=== PATIENT | female | born 1990 | race Caucasian/White ===

== ENCOUNTER 2019-07-23 06:44 | Inpatient (IN) | payer BC ==
[~2019-07-23 06:44] MED LIST: Bupivacaine 0.25% 10 ML SDV ONE
[2019-07-23] MEDS ORDERED: Ondansetron 4 MG/2 ML SDV IVPUSH PRN (07:29)
[2019-07-23] MEDS ORDERED: Sodium Chloride 0.9% 10 ML Syringe FLUSH PRN (07:29)
[2019-07-23] MEDS ORDERED: Oxytocin/Lactated Ringers 10 UNIT/1,000 ML BAG IV SCH ×2 (07:30→17:45)
[2019-07-23] MEDS ORDERED: Nalbuphine 10 MG/ML Syringe IVPUSH PRN (07:31)
[2019-07-23] MEDS ORDERED: fentaNYL 100 MCG/2 ML SDV EPIDUR PRN (08:11)
[2019-07-23] MEDS ORDERED: ePHEDrine 50 MG/ML SDV IVPUSH PRN (08:11)
--- NOTE | 2019-07-23 08:13 | PCM.PREANE ---
Preanesthetic Assessment - Anesthesia/Transfusion/Family Hx Anesthesia History: Prior Anesthesia Without Reaction Family History of Anesthesia Reaction: No Transfusion History: No Prior Transfusion(s) Intubation History: Unknown - Review of Systems General: No Symptoms Pulmonary: No Symptoms Cardiovascular: No Symptoms Gastrointestinal: No Symptoms, Diarrhea, Nausea Neurological: No Symptoms, Headache (migraine last one 3 months ago.), Numbness (right sciatica since ) Other: Reports: None, Diabetes (gestational DM) - Physical Assessment NPO Status Date: 07/23/19 NPO Status Time: 09:30 Vital Signs: Last Vital Signs Temp 36.9 C 07/23/19 07:14 Pulse 62 07/23/19 07:14 Resp 14 07/23/19 07:14 BP 107/59 L 07/23/19 07:14 Pulse Ox 100 07/23/19 07:14 Height: 1.6 m Weight: 59.92 kg ASA Class: 2 Mental Status: Alert & Oriented x3 Airway Class: Mallampati = 2 Dentition: Reports: Normal Dentition, Caries Thyro-Mental Finger Breadths: 3 Mouth Opening Finger Breadths: 3 ROM/Head Extension: Full Lungs: Clear to Auscultation, Normal Respiratory Effort Cardiovascular: Regular Rate, Regular Rhythm, No Murmurs - Lab Values: Laboratory Last Values WBC 11.29 K/mm3 (3.98-10.04) H 07/23/19 07:54 RBC 3.74 M/mm3 (3.98-5.22) L 07/23/19 07:54 Hgb 11.2 gm/dl (11.2-15.7) 07/23/19 07:54 Hct 34.0 % (34.1-44.9) L 07/23/19 07:54 MCV 90.9 fl (79.4-94.8) 07/23/19 07:54 MCH 29.9 pg (25.6-32.2) 07/23/19 07:54 MCHC 32.9 g/dl (32.2-35.5) 07/23/19 07:54 RDW Std Deviation 42.8 fL (36.4-46.3) 07/23/19 07:54 Plt Count 204 K/mm3 (182-369) 07/23/19 07:54 MPV 10.3 fl (9.4-12.3) 07/23/19 07:54 Neut % (Auto) 78.8 % (34.0-71.1) H 07/23/19 07:54 Lymph % (Auto) 16.2 % (19.3-51.7) L 07/23/19 07:54 Becker % (Auto) 4.3 % (4.7-12.5) L 07/23/19 07:54 Eos % (Auto) 0.2 (0.7-5.8) L 07/23/19 07:54 Baso % (Auto) 0.1 % (0.1-1.2) 07/23/19 07:54 Neut # (Auto) 8.90 K/mm3 (1.56-6.13) H 07/23/19 07:54 Lymph # (Auto) 1.83 K/mm3 (1.18-3.74) 07/23/19 07:54 Becker # (Auto) 0.49 K/mm3 (0.24-0.36) H 07/23/19 07:54 Eos # (Auto) 0.02 K/mm3 (0.04-0.36) L 07/23/19 07:54 Baso # (Auto) 0.01 K/mm3 (0.01-0.08) 07/23/19 07:54 Above labs reviewed and noted and within acceptable ranges to proceed with epidural if desired. - Allergies Allergies/Adverse Reactions: Allergies Allergy/AdvReac Type Severity Reaction Status Date / Time No Known Allergies Allergy Verified 07/23/19 07:13 - Anesthesia Plan Pre-Op Medication Ordered: None - Acknowledgements Anesthesia Type Planned: Epidural Pt an Appropriate Candidate for the Planned Anesthesia: Yes Alternatives and Risks of Anesthesia Discussed w Pt/Guardian: Yes Pt/Guardian Understands and Agrees with Anesthesia Plan: Yes PreAnesthesia Questionnaire - HOME MEDS Home Medications: Home Meds Vits #93/Iron Fum/FA [ Formula Tablet] 07/23/19 [History] - CURRENT (IN HOUSE) MEDS Current Meds: Current Medications Lactated Ringer's (Ringers, Lactated) 1,000 mls @ 100 mls/hr IV ASDIRECTED COLTEN Oxytocin/Lactated Ringer's (Pitocin In Lr 10 Units/1,000 Ml) 10 unit in 1,000 mls @ 500 mls/hr IV .CONTINUOUS COLTEN Nalbuphine HCl (Nubain) 10 mg IVPUSH Q3H PRN PRN Reason: Pain Ondansetron HCl (Zofran) 4 mg IVPUSH Q4H PRN PRN Reason: Nausea/Vomiting Sodium Chloride (Saline Flush) 10 ml FLUSH ASDIRECTED PRN PRN Reason: Keep Vein Open
[2019-07-23] MEDS ORDERED: Phenylephrine 1 MG in Sodium Chloride 0.9% 10 ML IV SCH (08:15)
[2019-07-23] MEDS: Lactated Ringers 1,000 ML IV SCH ×3 (09:15→14:32)
[2019-07-23] MEDS: Bupivacaine/fentaNYL/NS 100 ML Bag EPIDUR SCH ×2 (09:49→17:49)
--- NOTE | 2019-07-23 22:02 | PCM.HP.2 ---
H&P History of Present Illness - General Date of Service: 07/23/19 Admit Problem/Dx: Admission Diagnosis/Problem Admission Diagnosis/Problem - History of Present Illness Improves with: Reports: None Worsens with: Reports: None Associated Symptoms: Reports: No Other Symptoms Labor Pains Pain Score (Numeric/FACES): 8 - Related Data Allergies/Adverse Reactions: Allergies Allergy/AdvReac Type Severity Reaction Status Date / Time No Known Allergies Allergy Verified 07/23/19 07:13 Home Medications: Home Meds Vits #93/Iron Fum/FA [ Formula Tablet] 07/23/19 [History] Past Medical History HEENT History: Reports: Impaired Vision, Other (See Below) Other HEENT History: wears glasses [employer] History: Reports: Neurological History: Reports: Migraines Endocrine/Metabolic History: Reports: Diabetes, Gestational - Infectious Disease History Infectious Disease History: Reports: Chicken Pox - Past Surgical History HEENT Surgical History: Reports: Oral Surgery, Tonsillectomy Social & Family History - Tobacco Use Smoking Status *Q: Former Smoker Used Tobacco, but Quit: Yes Month/Year Tobacco Last Used: 2009 - Caffeine Use Caffeine Use: Reports: None - Recreational Drug Use Recreational Drug Use: No H&P Review of Systems - Review of Systems: Review Of Systems: See Below General: Reports: No Symptoms HEENT: Reports: No Symptoms Pulmonary: Reports: No Symptoms Cardiovascular: Reports: No Symptoms Gastrointestinal: Reports: No Symptoms Genitourinary: Reports: No Symptoms Musculoskeletal: Reports: No Symptoms Skin: Reports: No Symptoms Psychiatric: Reports: No Symptoms Neurological: Reports: No Symptoms Hematologic/Lymphatic: Reports: No Symptoms Immunologic: Reports: No Symptoms Exam - Exam Exam: See Below - Vital Signs Vital Signs: Last Vital Signs Temp 36.9 C 07/23/19 07:14 Pulse 62 07/23/19 07:14 Resp 14 07/23/19 07:14 BP 107/59 L 07/23/19 07:14 Pulse Ox 100 07/23/19 07:14 Weight: 59.92 kg - Exam General: Alert, Oriented, 4 HEENT: PERRLA, Hearing Intact, Mucosa Moist & [place], Nares Patent, Normal Nasal Septum, Posterior Pharynx Clear, Conjunctiva Clear, EOMI, EACs Clear, TMs Clear Neck: Supple, Trachea Midline, 2 Lungs: Clear to Auscultation, Normal Respiratory Effort Cardiovascular: Regular Rate, Regular Rhythm GI/Abdominal Exam: Normal Bowel Sounds, Soft, Non-Tender, No Organomegaly, No Distention, No Abnormal Bruit, No Mass, Pelvis Stable Back Exam: Normal Inspection, Full Range of Motion, NT Extremities: Normal Inspection, Normal Range of Motion, Non-Tender, No Pedal Edema, Normal Capillary Refill Skin: Warm, Dry, Intact Neurological: Cranial Nerves Intact, Reflexes Equal Bilateral Neuro Extensive - Mental Status: Alert, Oriented x3, Normal Mood/Affect, Normal Cognition Neuro Extensive - Motor, Sensory, Reflexes: CN II-XII Intact, Normal Gait, Normal Reflexes Psychiatric: Alert, Normal Affect, Normal Mood - Patient Data Lab Results Last 24 hrs: Laboratory Results - last 24 hr 07/23/19 07/23/19 07/23/19 Range/Units 07:54 07:54 10:27 WBC 11.29 H (3.98-10.04) K/mm3 RBC 3.74 L (3.98-5.22) M/mm3 Hgb 11.2 (11.2-15.7) gm/dl Hct 34.0 L (34.1-44.9) % MCV 90.9 (79.4-94.8) fl MCH 29.9 (25.6-32.2) pg MCHC 32.9 (32.2-35.5) g/dl RDW Std Deviation 42.8 (36.4-46.3) fL Plt Count 204 (182-369) K/mm3 MPV 10.3 (9.4-12.3) fl Neut % (Auto) 78.8 H (34.0-71.1) % Lymph % (Auto) 16.2 L (19.3-51.7) % Craig % (Auto) 4.3 L (4.7-12.5) % Eos % (Auto) 0.2 L (0.7-5.8) Baso % (Auto) 0.1 (0.1-1.2) % Neut # (Auto) 8.90 H (1.56-6.13) K/mm3 Lymph # (Auto) 1.83 (1.18-3.74) K/mm3 Craig # (Auto) 0.49 H (0.24-0.36) K/mm3 Eos # (Auto) 0.02 L (0.04-0.36) K/mm3 Baso # (Auto) 0.01 (0.01-0.08) K/mm3 POC Glucose 76 (70-105) mg/dL RPR Non-reactive (NONREACTIVE) 07/23/19 07/23/19 07/23/19 Range/Units 12:34 14:28 16:37 WBC (3.98-10.04) K/mm3 RBC (3.98-5.22) M/mm3 Hgb (11.2-15.7) gm/dl Hct (34.1-44.9) % MCV (79.4-94.8) fl MCH (25.6-32.2) pg MCHC (32.2-35.5) g/dl RDW Std Deviation (36.4-46.3) fL Plt Count (182-369) K/mm3 MPV (9.4-12.3) fl Neut % (Auto) (34.0-71.1) % Lymph % (Auto) (19.3-51.7) % Craig % (Auto) (4.7-12.5) % Eos % (Auto) (0.7-5.8) Baso % (Auto) (0.1-1.2) % Neut # (Auto) (1.56-6.13) K/mm3 Lymph # (Auto) (1.18-3.74) K/mm3 Craig # (Auto) (0.24-0.36) K/mm3 Eos # (Auto) (0.04-0.36) K/mm3 Baso # (Auto) (0.01-0.08) K/mm3 POC Glucose 72 104 77 (70-105) mg/dL RPR (NONREACTIVE) 07/23/19 07/23/19 Range/Units 18:30 19:48 WBC (3.98-10.04) K/mm3 RBC (3.98-5.22) M/mm3 Hgb (11.2-15.7) gm/dl Hct (34.1-44.9) % MCV (79.4-94.8) fl MCH (25.6-32.2) pg MCHC (32.2-35.5) g/dl RDW Std Deviation (36.4-46.3) fL Plt Count (182-369) K/mm3 MPV (9.4-12.3) fl Neut % (Auto) (34.0-71.1) % Lymph % (Auto) (19.3-51.7) % Craig % (Auto) (4.7-12.5) % Eos % (Auto) (0.7-5.8) Baso % (Auto) (0.1-1.2) % Neut # (Auto) (1.56-6.13) K/mm3 Lymph # (Auto) (1.18-3.74) K/mm3 Craig # (Auto) (0.24-0.36) K/mm3 Eos # (Auto) (0.04-0.36) K/mm3 Baso # (Auto) (0.01-0.08) K/mm3 POC Glucose 88 74 (70-105) mg/dL RPR (NONREACTIVE) Result Diagrams: 07/23/19 07:54 Sepsis Event Note - Evaluation Sepsis Screening Result: No Definite Risk Problem List Initiated/Reviewed/Updated: Yes Orders Last 24hrs: Active Orders 24 hr Category Date Time Status Patient Status Manage Transfer [TRANSFER] Routine ADT 07/23/19 21:55 Ordered Patient Status [ADT] Routine ADT 07/23/19 07:29 Active Activity as Tolerated [RC] PFP Care 07/23/19 07:29 Active Blood Glucose Check, Bedside [RC] Q2HR Care 07/23/19 10:30 Active Communication Order [RC] ASDIRECTED Care 07/23/19 07:29 Active Heart Tones [RC] ASDIRECTED Care 07/23/19 07:30 Active Non Stress Test [RC] PER UNIT ROUTINE Care 07/23/19 07:14 Active Notify Provider [RC] ASDIRECTED Care 07/23/19 08:11 Active Notify Provider [RC] PFP Care 07/23/19 07:29 Active Notify Provider [RC] PRN Care 07/23/19 07:29 Active Oxygen Therapy [RC] ASDIRECTED Care 07/23/19 08:11 Active PCEA Epidural [RC] ASDIRECTED Care 07/23/19 08:11 Active Peripheral IV Care [RC] . DIRECTED Care 07/23/19 07:30 Active Pulse Oximetry [RC] ASDIRECTED Care 07/23/19 08:11 Active Urinary Catheter Assessment [RC] ASDIRECTED Care 07/23/19 08:12 Active Urinary Catheter Insertion [Insert Urinary Catheter] [ Care 07/23/19 08:15 Ordered OM.PC] Q24H Vital Signs [RC] PER UNIT ROUTINE Care 07/23/19 07:14 Active Regular Diet [DIET] Diet 07/23/19 Breakfast Active BLOOD BANK HOLD SPECIMEN [BBK] Routine Lab 07/23/19 07:29 Ordered Bupivacaine/fentaNYL/NS [fentaNYL/Bupivacaine/NS 2 MCG- Med 07/23/19 08:15 Active 0.125% 100 ML] 100 ml EPIDUR ASDIRECTED Lactated Ringers [Ringers, Lactated] 1,000 ml Med 07/23/19 07:30 Active IV ASDIRECTED Nalbuphine [Nubain] Med 07/23/19 07:31 Active 10 mg IVPUSH Q3H PRN Ondansetron [Zofran] Med 07/23/19 07:29 Active 4 mg IVPUSH Q4H PRN Oxytocin/Lactated Ringers [Pitocin in LR 10 Units/1,000 Med 07/23/19 07:30 Active ML] 10 unit in 1,000 ml IV .CONTINUOUS Oxytocin/Lactated Ringers [Pitocin in LR 10 Units/1,000 Med 07/23/19 17:45 Active ML] 10 unit in 1,000 ml IV TITRATE Phenylephrine [Jim-Synephrine] 1 mg Med 07/23/19 08:15 Active Sodium Chloride 0.9% [Normal Saline] 10 ml IV TITRATE Sodium Chloride 0.9% [Saline Flush] Med 07/23/19 07:29 Active 10 ml FLUSH ASDIRECTED PRN ePHEDrine [ePHEDrine sulfate] Med 07/23/19 08:11 Active 5 mg IVPUSH ASDIRECTED PRN fentaNYL [Sublimaze] Med 07/23/19 08:11 Active 100 mcg EPIDUR Q3H PRN Electronic Heart Tones Ext w TOCO [WOMSER] Oth 07/23/19 07:29 Ordered Routine Electronic Heart Tones Internal [WOMSER] Per Unit Oth 07/23/19 07:29 Ordered Routine Peripheral IV Insertion Adult [OM.PC] Routine Oth 07/23/19 07:29 Ordered Resuscitation Status Routine Resus Stat 07/23/19 07:14 Ordered Medication Orders Ephedrine Sulfate (Ephedrine Sulfate) 5 mg IVPUSH ASDIRECTED PRN PRN Reason: Hypotension Fentanyl (Sublimaze) 100 mcg EPIDUR Q3H PRN PRN Reason: Pain Last Admin: 07/23/19 09:48 Dose: 100 mcg Fentanyl/Bupivacaine HCl (Fentanyl/Bupivacaine/Ns 2 Mcg-0.125% 100 Ml) 100 ml EPIDUR ASDIRECTED COLTEN Last Admin: 07/23/19 17:49 Dose: 100 ml Admin: 07/23/19 09:49 Dose: 100 ml Lactated Ringer's (Ringers, Lactated) 1,000 mls @ 100 mls/hr IV ASDIRECTED COLTEN Last Admin: 07/23/19 14:32 Dose: 100 mls/hr Infusion: 07/23/19 14:32 Dose: 100 mls/hr Infusion: 07/23/19 10:30 Dose: 100 mls/hr Admin: 07/23/19 10:11 Dose: 999 mls/hr Infusion: 07/23/19 10:11 Dose: 999 mls/hr Admin: 07/23/19 09:15 Dose: 999 mls/hr Oxytocin/Lactated Ringer's (Pitocin In Lr 10 Units/1,000 Ml) 10 unit in 1,000 mls @ 500 mls/hr IV .CONTINUOUS COLTEN Phenylephrine HCl 1 mg/ Sodium (Chloride) 10.1 mls @ 1 mls/sec IV TITRATE COLTEN; Protocol Oxytocin/Lactated Ringer's (Pitocin In Lr 10 Units/1,000 Ml) 10 unit in 1,000 mls @ 12 mls/hr IV TITRATE COLTEN; Protocol Last Titration: 07/23/19 19:30 Dose: 4 munits/min, 24 mls/hr Titration: 07/23/19 18:31 Dose: 3 munits/min, 18 mls/hr Admin: 07/23/19 18:00 Dose: 2 munits/min, 12 mls/hr Nalbuphine HCl (Nubain) 10 mg IVPUSH Q3H PRN PRN Reason: Pain Ondansetron HCl (Zofran) 4 mg IVPUSH Q4H PRN PRN Reason: Nausea/Vomiting Sodium Chloride (Saline Flush) 10 ml FLUSH ASDIRECTED PRN PRN Reason: Keep Vein Open Assessment/Plan Comment:: Term labor. AROM clear fluid. Blood sugars in labor - Mortality Measure Prognosis:: Good
--- NOTE | 2019-07-23 22:07 | PCM.SN ---
- Free Text/Narrative Note: Stage I - Patient presented in active labor. AROM. Epidural. Progressed to complete with overall reassuring FHT. Stage II - of viable female, weight 3320, 8/9 at 2138. Head delivered in controlled manner over intact perineum. Body and shoulders atraumatically. Positive cry. Cord clamped and cut, cord blood collected, baby to warmer. Stage III - of intact placenta, 3vc. 2nd degree laceration repaired with 3- 0 vicryl. EBL 300.
[2019-07-23] MEDS ORDERED: Witch Hazel Medicated Pads 40/Jar TOP PRN (23:00)
[2019-07-23] MEDS ORDERED: Benzocaine/Menthol 20%-0.5% Spray 56 GM Canister TOP PRN (23:00)
[2019-07-24] MEDS: Docusate Sodium 100 MG Cap PO PRN ×2 (00:02→22:05)
--- NOTE | 2019-07-24 15:37 | PCM48HPAN ---
Post Anesthesia Note - EVALUATION WITHIN 48HRS OF ANESTHETIC Vital Signs in Normal Range: Yes Patient Participated in Evaluation: Yes Respiratory Function Stable: Yes Airway Patent: Yes Cardiovascular Function Stable: Yes Hydration Status Stable: Yes Pain Control Satisfactory: Yes Nausea and Vomiting Control Satisfactory: Yes Mental Status Recovered: Yes Vital Signs: Last Vital Signs Temp 36.9 C 07/23/19 07:14 Pulse 50 L 07/23/19 23:30 Resp 14 07/23/19 07:14 BP 101/58 L 07/23/19 23:30 Pulse Ox 100 07/23/19 10:00
[2019-07-24] MEDS ORDERED: Acetaminophen 325 MG Tab PO PRN (15:59)
[2019-07-24] MEDS: Ibuprofen 600 MG Tab PO PRN ×2 (16:03→22:04)
--- NOTE | 2019-07-25 08:30 | PCM.DCSUM1 ---
Discharge Summary - Hospital Course Diagnosis: Stroke: No - Discharge Data Discharge Date: 07/25/19 Discharge Disposition: Home, Self-Care 01 Condition: Good - Referral to Home Health Primary Care Physician: Moraima Alvarez MD - Patient Instructions Diet: Usual Diet as Tolerated Activity: No Strenuous Activities Driving: May Drive Today Showering/Bathing: May Shower Notify Provider of: Fever, Increased Pain, Swelling and Redness, Drainage, Nausea and/or Vomiting - Discharge Plan *PRESCRIPTION DRUG MONITORING PROGRAM REVIEWED*: No *COPY OF PRESCRIPTION DRUG MONITORING REPORT IN PATIENT MICHELA: No Home Medications: Home Meds Vits #93/Iron Fum/FA [ Formula Tablet] 07/23/19 [History] Referrals: Moraima Alvarez MD [Primary Care Provider] - (call at 2 weeks) - Discharge Summary/Plan Comment DC Time >30 min.: No - General Info Date of Service: 07/25/19 Functional Status: Reports: Pain Controlled - Review of Systems General: Reports: No Symptoms HEENT: Reports: No Symptoms Pulmonary: Reports: No Symptoms Cardiovascular: Reports: No Symptoms Gastrointestinal: Reports: No Symptoms Genitourinary: Reports: No Symptoms Musculoskeletal: Reports: No Symptoms Skin: Reports: No Symptoms Neurological: Reports: No Symptoms Psychiatric: Reports: No Symptoms - Patient Data Vitals - Most Recent: Last Vital Signs Temp 36.7 C 07/25/19 02:16 Pulse 47 L 07/25/19 02:16 Resp 14 07/25/19 02:16 BP 109/58 L 07/25/19 02:16 Pulse Ox 100 07/25/19 02:16 Weight - Most Recent: 59.92 kg I&O - Last 24 hours: Intake & Output 07/24/19 07/25/19 07/25/19 22:59 06:59 14:59 Intake Total 440 Balance 440 Lab Results - Last 24 hrs: Laboratory Results - last 24 hr 07/24/19 Range/Units 05:55 Blood Type A NEGATIVE Gel Antibody Screen Positive Screen 1 ros/5 flds - neg RhIG Candidate? Yes Rhogam Indicated Yes, baby rh pos H Med Orders - Current: Current Medications Acetaminophen (Tylenol) 650 mg PO Q4H PRN PRN Reason: Pain Benzocaine/Menthol (Dermoplast Pain Relief [place]) 0 gm TOP ASDIRECTED PRN PRN Reason: Perineal Comfort Measure Last Admin: 07/24/19 00:01 Dose: 1 can Docusate Sodium (Colace) 100 mg PO BID PRN PRN Reason: Constipation Last Admin: 07/24/19 22:05 Dose: 100 mg Ibuprofen (Motrin) 600 mg PO Q6H PRN PRN Reason: Pain Last Admin: 07/24/19 22:04 Dose: 600 mg Witch Venessa (Tucks) 1 pad TOP ASDIRECTED PRN PRN Reason: Pain Last Admin: 07/24/19 00:01 Dose: 1 can Discontinued Medications Bupivacaine HCl (Sensorcaine-Mpf 0.25%) 10 ml .ROUTE .[facility] ONE Stop: 07/23/19 00:01 Ephedrine Sulfate (Ephedrine Sulfate) 5 mg IVPUSH ASDIRECTED PRN PRN Reason: Hypotension Fentanyl (Sublimaze) 100 mcg EPIDUR Q3H PRN PRN Reason: Pain Last Admin: 07/23/19 09:48 Dose: 100 mcg Fentanyl/Bupivacaine HCl (Fentanyl/Bupivacaine/Ns 2 Mcg-0.125% 100 Ml) 100 ml EPIDUR ASDIRECTED COLTEN Last Admin: 07/23/19 17:49 Dose: 100 ml Lactated Ringer's (Ringers, Lactated) 1,000 mls @ 100 mls/hr IV ASDIRECTED COLTEN Last Admin: 07/23/19 14:32 Dose: 100 mls/hr Oxytocin/Lactated Ringer's (Pitocin In Lr 10 Units/1,000 Ml) 10 unit in 1,000 mls @ 500 mls/hr IV .CONTINUOUS COLTEN Phenylephrine HCl 1 mg/ Sodium (Chloride) 10.1 mls @ 1 mls/sec IV TITRATE COLTEN; Protocol Oxytocin/Lactated Ringer's (Pitocin In Lr 10 Units/1,000 Ml) 10 unit in 1,000 mls @ 12 mls/hr IV TITRATE COLTEN; Protocol Last Titration: 07/23/19 19:30 Dose: 4 munits/min, 24 mls/hr Nalbuphine HCl (Nubain) 10 mg IVPUSH Q3H PRN PRN Reason: Pain Ondansetron HCl (Zofran) 4 mg IVPUSH Q4H PRN PRN Reason: Nausea/Vomiting Sodium Chloride (Saline Flush) 10 ml FLUSH ASDIRECTED PRN PRN Reason: Keep Vein Open - Exam General: Reports: Alert, Oriented HEENT: Reports: Pupils Equal, Pupils Reactive, EOMI, Mucous Membr. Moist/[place] Neck: Reports: Supple Lungs: Reports: Clear to Auscultation, Normal Respiratory Effort Cardiovascular: Reports: Regular Rate, Regular Rhythm GI/Abdominal Exam: Normal Bowel Sounds, Soft, Non-Tender, No Organomegaly, No Distention, No Abnormal Bruit, No Mass, Pelvis Stable Rectal (Female) Exam: Normal Exam, Normal Rectal Tone Back Exam: Reports: Normal Inspection, Full Range of Motion Extremities: Normal Inspection, Normal Range of Motion, Non-Tender, No Pedal Edema, Normal Capillary Refill Skin: Reports: Warm, Dry, Intact Wound/Incisions: Reports: Healing Well Neurological: Reports: No New Focal Deficit Psy/Mental Status: Reports: Alert, Normal Affect, Normal Mood
== END 2019-07-25 15:00 | disposition home or self-care (01) | DRG 560 ==
LOC: JD.OBCHECK 06:44 → JD.OB 06:44 → JD.OBCHECK 07:29 → JD.OB 07:29 → OBSVTOIN 21:38 → JD.OB 21:39
PROVIDERS: ADMIT Obstetrics & Gynecology; ATTEND Obstetrics & Gynecology
PROC: 10E0XZZ Delivery of Products of Conception, External Approach (ICD-10-PCS; principal; 2019-07-23)
PROC: 10907ZC Drainage of Amniotic Fluid, Therapeutic from Products of Conception, Via Natural or Artificial Opening (ICD-10-PCS; 2019-07-23)
PROC: 0KQM0ZZ Repair Perineum Muscle, Open Approach (ICD-10-PCS; 2019-07-23)
PROC: 3E0R3BZ Introduction of Anesthetic Agent into Spinal Canal, Percutaneous Approach (ICD-10-PCS; 2019-07-23)
PROC: 00HU33Z Insertion of Infusion Device into Spinal Canal, Percutaneous Approach (ICD-10-PCS; 2019-07-23)
PROC: 3E0334Z Introduction of Serum, Toxoid and Vaccine into Peripheral Vein, Percutaneous Approach (ICD-10-PCS; 2019-07-24)
DX: O70.1 Second degree perineal laceration during delivery (principal); O26.893 Other specified pregnancy related conditions, third trimester; Z67.11 Type A blood, Rh negative; Z37.0 Single live birth; Z3A.39 39 weeks gestation of pregnancy
CPT/HCPCS: 01967; 36415; 51702; 59025; 59409; 82962; 85025; 85027; 86592; 93306; A9270-GY; J2590; J2790; J3010; J3490; J7120

== ENCOUNTER 2021-05-24 08:53 | Emergency (ER) | payer BC ==
[2021-05-24] MEDS ORDERED: Cyclobenzaprine 10 MG Tab PO ONE (09:26)
[2021-05-24] MEDS ORDERED: HYDROmorphone 0.5 MG/0.5 ML Syringe IVPUSH ONE (09:26)
[2021-05-24] MEDS ORDERED: Sodium Chloride 0.9% 10 ML Syringe FLUSH PRN (09:26)
[2021-05-24] MEDS ORDERED: Ketorolac 30 MG/ML SDV IVPUSH ONE (09:26)
[2021-05-24] MEDS ORDERED: fentaNYL 100 MCG/2 ML SDV IVPUSH ONE (10:46)
== END 2021-05-24 13:15 | disposition home or self-care (01) ==
LOC: JD.ED 08:53
DX: S39.012A Strain of muscle, fascia and tendon of lower back, initial encounter (principal); Z72.0 Tobacco use; X50.0XXA Overexertion from strenuous movement or load, initial encounter
CPT/HCPCS: 72100; 96374; 96375; 99283; A9270; J1170; J1885; J3010; 99284

== ENCOUNTER 2023-09-08 04:58 | Inpatient (IN) | payer BC ==
[2023-09-08] MEDS: Lactated Ringers 1,000 ML IV SCH (05:36)
[2023-09-08 06:04] LABS: BASOPHILS PERCENT AUTO 0.2 % (0.0-1.0); EOSINOPHILS ABSOLUTE AUTO 0.1 K/mm3 (0.0-0.4); EOSINOPHILS PERCENT AUTO 0.9 % (0.0-6.0); HEMATOCRIT 31.6 % (37.0-47.0); HEMOGLOBIN 10.8 gm/dl (12.0-16.0); IMMATURE GRAN ABSOLUTE AUTO 0.09 K/mm3 (0.00-0.05); IMMATURE GRAN PERCENT AUTO 0.9 % (0.0-0.4); LYMPHOCYTES ABSOLUTE AUTO 2.3 K/mm3 (1.0-4.8); LYMPHOCYTES PERCENT AUTO 22.4 % (24.0-44.0); MEAN CORPUSCULAR HEMOGLOBIN 31.6 pg (28.0-32.0); MEAN CORPUSCULAR HGB CONC 34.2 g/dl (32.0-36.0); MEAN CORPUSCULAR VOLUME 92.4 fl (83.0-99.0); MEAN PLATELET VOLUME 9.9 fl (9.4-12.3); MONOCYTES ABSOLUTE AUTO 0.7 K/mm3 (0.0-0.8); MONOCYTES PERCENT AUTO 6.8 % (0.0-8.0); NEUTROPHILS ABSOLUTE AUTO 7.2 K/mm3 (1.8-7.7); NEUTROPHILS PERCENT AUTO 68.8 % (41.0-71.0); PLATELET COUNT,PLT 168 K/mm3 (150-400); RED BLOOD CELL COUNT 3.42 M/mm3 (4.10-5.30); WHITE BLOOD CELL COUNT,WBC 10.37 K/mm3 (3.9-11.3)
[2023-09-08] MEDS ORDERED: Morphine PF 10 MG/10 ML SDV ONE (06:58)
[2023-09-08] MEDS ORDERED: fentaNYL 100 MCG/2 ML SDV ONE (06:58)
[2023-09-08] MEDS ORDERED: Phenylephrine 1% 10 MG/ML SDV ONE (06:59)
[2023-09-08] MEDS ORDERED: Ondansetron 4 MG/2 ML SDV ONE (06:59)
[2023-09-08] MEDS ORDERED: Dexamethasone 4 MG/ML SDV ONE (06:59)
[2023-09-08] MEDS ORDERED: ceFAZolin 2 GM Vial ONE (06:59)
[2023-09-08] MEDS ORDERED: Sodium Chloride 0.9% 50 ML SDV ONE (07:00)
[2023-09-08] MEDS ORDERED: Oxytocin 10 Units/1 ML SDV ONE ×3 (07:03→08:34)
[2023-09-08] MEDS ORDERED: fentaNYL 100 MCG/2 ML SDV IVPUSH PRN (07:15)
[2023-09-08] MEDS ORDERED: Meperidine 50 MG/ML Vial IVPUSH PRN (07:15)
[2023-09-08] MEDS ORDERED: diphenhydrAMINE 50 MG/ML SDV IVPUSH PRN ×2 (07:15→09:15)
[2023-09-08] MEDS ORDERED: Ondansetron 4 MG/2 ML SDV IVPUSH PRN (07:15)
[2023-09-08] MEDS ORDERED: Nalbuphine 10 MG/ML Syringe IVPUSH PRN (07:16)
[2023-09-08] MEDS: Metoclopramide 10 MG/2 ML SDV IVPUSH ONE (07:18)
[2023-09-08] MEDS: Citric Acid/Sodium Citrate Solution 30 ML Cup PO ONE (07:18)
[2023-09-08] MEDS ORDERED: diphenhydrAMINE 50 MG/ML SDV ONE (08:17)
[2023-09-08] MEDS ORDERED: Lactated Ringers 1,000 ML IV ONE (08:45)
[2023-09-08] MEDS ORDERED: ePHEDrine 50 MG/ML SDV IVPUSH PRN (09:15)
[2023-09-08] MEDS ORDERED: Ketorolac 30 MG/ML SDV IVPUSH PRN (09:15)
[2023-09-08] MEDS ORDERED: Naloxone 0.4 MG/ML SDV IVPUSH PRN (09:15)
[2023-09-08] MEDS ORDERED: Acetaminophen 325 MG Tab PO PRN (09:15)
[2023-09-08] MEDS ORDERED: Ketorolac 15 MG/ML SDV IVPUSH SCH ×2 (09:30→15:30)
[2023-09-08] MEDS: Ketorolac 30 MG/ML SDV IVPUSH PRN (09:33)
[2023-09-08] MEDS: Oxytocin/Lactated Ringers 30 UNIT/500 ML BAG IV SCH (09:55)
[2023-09-08] MEDS: Bupivacaine 0.5% 30 ML SDV ONE (10:38)
[2023-09-08] MEDS: ceFAZolin 2 GM in Sodium Chloride 0.9% 50 ML IV ONE (12:16)
[2023-09-08] MEDS: Dextrose 5%-Lactated Ringers 1,000 ML IV SCH (12:16)
[2023-09-08] MEDS: Ketorolac 30 MG/ML SDV IVPUSH SCH (15:31)
[2023-09-08] MEDS: Docusate Sodium 100 MG Cap PO PRN (21:59)
[2023-09-09 05:49] LABS: BASOPHILS PERCENT AUTO 0.2 % (0.0-1.0); EOSINOPHILS ABSOLUTE AUTO 0.1 K/mm3 (0.0-0.4); EOSINOPHILS PERCENT AUTO 0.4 % (0.0-6.0); HEMATOCRIT 26.9 % (37.0-47.0); HEMOGLOBIN 9.4 gm/dl (12.0-16.0); IMMATURE GRAN ABSOLUTE AUTO 0.09 K/mm3 (0.00-0.05); IMMATURE GRAN PERCENT AUTO 0.5 % (0.0-0.4); LYMPHOCYTES ABSOLUTE AUTO 3.6 K/mm3 (1.0-4.8); LYMPHOCYTES PERCENT AUTO 21.3 % (24.0-44.0); MEAN CORPUSCULAR HEMOGLOBIN 32.5 pg (28.0-32.0); MEAN CORPUSCULAR HGB CONC 34.9 g/dl (32.0-36.0); MEAN CORPUSCULAR VOLUME 93.1 fl (83.0-99.0); MEAN PLATELET VOLUME 10.4 fl (9.4-12.3); MONOCYTES ABSOLUTE AUTO 1.4 K/mm3 (0.0-0.8); NEUTROPHILS ABSOLUTE AUTO 11.8 K/mm3 (1.8-7.7); NEUTROPHILS PERCENT AUTO 69.6 % (41.0-71.0); PLATELET COUNT,PLT 156 K/mm3 (150-400); RED BLOOD CELL COUNT 2.89 M/mm3 (4.10-5.30); WHITE BLOOD CELL COUNT,WBC 16.92 K/mm3 (3.9-11.3)
[2023-09-09] MEDS: Acetaminophen/oxyCODONE 325-5 MG Tab PO PRN ×2 (10:38→16:19)
[2023-09-09] MEDS: Ibuprofen 600 MG Tab PO PRN (14:09)
[2023-09-10] MEDS: Simethicone 80 MG Tab.Chew PO PRN (05:46)
== END 2023-09-10 15:20 | disposition home or self-care (01) | DRG 540 ==
LOC: JD.OB 04:58
PROVIDERS: ADMIT Obstetrics & Gynecology; ATTEND Obstetrics & Gynecology
PROC: 10D00Z1 Extraction of Products of Conception, Low, Open Approach (ICD-10-PCS; principal; 2023-09-08 08:00)
DX: O32.1XX0 Maternal care for breech presentation, not applicable or unspecified (principal); O34.211 Maternal care for low transverse scar from previous cesarean delivery; Z37.0 Single live birth; Z3A.39 39 weeks gestation of pregnancy; Z90.89 Acquired absence of other organs; Z98.890 Other specified postprocedural states; Z87.891 Personal history of nicotine dependence
CPT/HCPCS: 01961; 36415; 36430; 59025; 82947; 85025; 85461; 86592; 86850; 86870; 86900; 86901; 94762; A9270-GY; J0665; J0690; J1100; J1200; J1885; J2274; J2371; J2405; J2590; J2765; J2790; J3010; J3490; J7120; J7121; J7999